=== PATIENT | female | born 1950 | race Caucasian/White ===

== ENCOUNTER → 2016-05-15 | Outpatient (CLI) | payer BC ==
[~2016-05-15] MED LIST: ALLEGRA-D1 TAB.SR1 PO; ARIMIDEX1 MG PO; CRESTOR5 MG PO; FISH OIL; FISH OIL 1,0001 CAP PO; METFORMIN HCL500 M1 PO; MOBIC PO; VICTOZA0.6 MG/0.1 SQ; ZANTAC PO; ZOCOR PO; ZOLOFT PO; ZOLOFT50 MG PO
--- NOTE | ~2016-05-15 | MY11 ---
[facility] A Service of [facility] & [facility] RADIOLOGY TEXT RESULTS PATIENT: TAMIKO LEON LOCATION: [facility] : 52 UNIT #: [id number] AGE: [address]: Elvie Gonzalez MD SEX: F ORDER DR: [id number] [facility] [address] [place], [place] [address] [id number] O MR#: [id number] Acc #: [id number] NAME: TAMIKO LEON : 1950 SEX: F STUDY DATE/TIME: 05/15/2016 14:38 UNIT: [facility] ROOM: STUDY DESCRIPTION: MY Mammogram Screening Dig Anupam Attending Physician: Elvie Gonzalez M.D. Referring Physician: Elvie Gonzalez M.D. Ordering Physician: Elvie Gonzalez M.D. Primary Care Physician: Elvie Gonzalez M.D. MEDICAL IMAGING REPORT This report is preliminary unless electronic signature is present EXAM Bilateral digital screening mammogram with CAD, 05/15/2016. INDICATION 66-year-old female for routine screening. No reported problems. Personal history of breast cancer on the left, status post radiation therapy. Family history of breast cancer in the patient's Mom. Status post lumpectomy on the left. No current problems. TECHNIQUE CC, MLO, and true lateral views were obtained of the left breast and standard screening views were obtained of the right breast. COMPARISON 05/04/2015, 04/20/2014, 04/15/2014, 04/12/2014, 03/30/2013 FINDINGS Breast parenchyma is composed of scattered fibroglandular densities. The pattern is unchanged. There is no new dominant nodule, mass, or suspicious cluster of microcalcifications. There is architectural distortion and biopsy clip in the left breast related to prior tissue sampling. There is evidence of axillary dissection on the left. Intramammary node in the left breast and a calcified oil cyst in the left breast are stable. No interval change in the appearance of the right breast. IMPRESSION Benign screening mammogram. 1-year followup recommended. Patients over the age of 40 are entered into a reminder system with target due date for the next mammogram. A result letter will also be sent to the patient. [facility] A Service of [facility] RADIOLOGY TEXT RESULTS PATIENT: TAMIKO LEON LOCATION: [facility] : 52 UNIT #: [id number] AGE: [address]: Elvie Gonzalez MD SEX: F ORDER DR: BIRADS: 2 Benign finding. Dictated by... Milo Pope M.D. THIS IS AN ELECTRONICALLY VERIFIED REPORT Milo Pope M.D. at 05/16/2016 7:19 AM JOSE MANUEL/sofi TD: 05/15/2016 17:09 JOB #: [id number] MEDICAL IMAGING REPORT COPY
== END | disposition home or self-care (01) ==
LOC: CWCC 14:22
DX: Z12.31 Encounter for screening mammogram for malignant neoplasm of breast (principal); Z85.3 Personal history of malignant neoplasm of breast; Z80.3 Family history of malignant neoplasm of breast; Z98.890 Other specified postprocedural states
CPT/HCPCS: G0202